=== PATIENT | female | born 1990 | race Caucasian/White ===

== ENCOUNTER 2016-11-27 13:07 | Emergency (ER) | payer MEDICAID ==
[2016-11-27 13:47] LABS: BASOPHILS 0.2 % (0-2); EOSINOPHILS 3.2 % (0-7); HEMATOCRIT 40.8 % (36.0-48.0); HEMOGLOBIN 13.7 g/dL (12-16); IMMATURE GRANULOCYTES 0.5 % (0-5); LYMPHOCYTES 16.3 % (15-50); MCH 28.5 pg (26.0-34.0); MCHC 33.6 g/dL (31.0-37.0); MONOCYTES 7.7 % (2-11); NEUTROPHILS 72.1 % (40-80); PLATELET COUNT 256 10x3/uL (130-400); RDW 13.7 % (11.5-14.5); WBC 10.1 10x3/uL (4.8-10.8)
[2016-11-27 13:49] LABS: APPEARANCE CLEAR (CLEAR); BILIRUBIN NEGATIVE (NEGATIVE); COLOR YELLOW (YELLOW); GLUCOSE NEGATIVE (NEGATIVE); KETONE NEGATIVE (NEGATIVE); LEUKOCYTE ESTERASE NEGATIVE (NEGATIVE); NITRITE NEGATIVE (NEGATIVE); PH 6.5 (5.0-6.0); PROTEIN NEGATIVE (NEGATIVE); UROBILINOGEN NORMAL (NORMAL)
[2016-11-27 14:09] LABS: HCG SERUM NEGATIVE (NEGATIVE)
== END 2016-11-27 16:37 | disposition home or self-care (01) ==
LOC: D.ER 13:07
PROVIDERS: Emergency Medicine
DX: N94.0 Mittelschmerz (principal); G40.909 Epilepsy, unspecified, not intractable, without status epilepticus

== ENCOUNTER 2017-08-19 02:41 | Emergency (ER) | payer MEDICAID | END 2017-08-19 05:45 | disposition home or self-care (01) | LOC: D.ER 02:41 | DX: S43.005A Unspecified dislocation of left shoulder joint, initial encounter (principal); X58.XXXA Exposure to other specified factors, initial encounter; Y93.83 Activity, rough housing and horseplay; Y92.019 Unspecified place in single-family (private) house as the place of occurrence of the external cause; N94.0 Mittelschmerz; G40.909 Epilepsy, unspecified, not intractable, without status epilepticus ==